=== PATIENT | male | born 1980 | race African-American/Black ===

== ENCOUNTER 2023-09-22 16:53 | Emergency (ER) | payer MEDICAID ==
[~2023-09-22] VITALS: Ht 170.2 cm; Wt 83.9 kg
[2023-09-22 18:35] LABS: BASOPHILS # (AUTO) 0.2 K/uL (0.0-0.2); BASOPHILS % (AUTO) 0.9 % (0.0-2.0); EOSINOPHILS # (AUTO) 0.9 K/uL (0.0-0.7); HEMATOCRIT 31 % (39-51); HEMOGLOBIN 10.8 g/dL (13.5-17.5); LYMPHOCYTES # (AUTO) 1.3 K/uL (0.8-4.8); LYMPHOCYTES % (AUTO) 7.2 % (20.0-44.0); MEAN CORPUSCULAR HEMOGLOBIN 30 PG (26.0-33.0); MEAN CORPUSCULAR HGB CONC 34 g/dl (31.0-36.0); MEAN CORPUSCULAR VOLUME 88 fL (80-96); MONOCYTES # (AUTO) 1.3 K/uL (0.1-1.30); MONOCYTES % (AUTO) 7.1 % (2.0-12.0); NEUTROPHILS # (AUTO) 14.6 K/uL (1.8-8.9); NEUTROPHILS % (AUTO) 79.8 % (43.0-81.0); PLATELET COUNT (AUTO) 475 K/uL (150-450); RED BLOOD CELL COUNT(AUTO) 3.58 MIL/uL (4.5-6.0); RED CELL DISTRIBUTION WIDTH 14.2 % (11.5-15.0); WHITE BLOOD COUNT (AUTO) 18.3 K/uL (4.3-11.0)
[2023-09-22] MEDS ORDERED: OLAN20TA3 PO (18:39)
[2023-09-22] MEDS ORDERED: TRAZ-257 PO (18:39)
[2023-09-22] MEDS ORDERED: BECL10.62 IH (18:39)
[2023-09-22] MEDS ORDERED: AMOX1TAB16 PO (18:39)
[2023-09-22] MEDS ORDERED: CYCL10TA9 PO (18:39)
[2023-09-22] MEDS ORDERED: MELO-107 PO (18:39)
[2023-09-22] MEDS ORDERED: OMEG1CAP40 PO (18:39)
[2023-09-22 18:43] LABS: CALCIUM, SERUM 8.7 mg/dL (8.5-10.1); CARBON DIOXIDE 28 mmol/L (21-32); CHLORIDE 98 mmol/L (98-107); CREATININE 0.6 mg/dL (0.6-1.3); GLUCOSE 103 mg/dL (74-106); POTASSIUM 3.4 mmol/L (3.5-5.1); SODIUM SERUM 135 mmol/L (136-145); UREA NITROGEN, BLOOD 10 mg/dL (7-18)
[2023-09-22 18:56] LABS: ALANINE AMINOTRANSFERASE 43 U/L (12-78); ALBUMIN 2.2 g/dL (3.4-5.0); ALKALINE PHOSPHATASE 114 U/L (46-116); ASPARTATE AMINOTRANSFERASE 32 U/L (15-37); BILIRUBIN,DIRECT 0.2 mg/dL (0.0-0.2); BILIRUBIN,TOTAL 0.6 mg/dL (0.2-1.0); NT-PRO BNP 53 pg/mL (0-125); TOTAL PROTEIN, SERUM 7.4 g/dL (6.4-8.2)
[2023-09-22] MEDS: IV NS 0.9% 1,000 ML BAG IV ONE (19:00)
[2023-09-22] MEDS: AZITHROMYCIN 500 MG in IV D5W 250 ML IV ONE (19:00)
[2023-09-22 19:15] VITALS: BP 119/76; TEMP 98.4; O2SAT 96
[2023-09-22] MEDS: PIPERACILLIN /TAZOBACTAM 3.375 G in IV D5W 50 ML IV ONE (19:15)
[2023-09-22] MEDS ORDERED: AZITHROMYCIN 500 MG VIAL ONE (19:47)
[2023-09-22] MEDS ORDERED: VANCOMYCIN 1 GM /D5W 250 ML PB IV ONE (19:47)
[2023-09-22] MEDS: VANCOMYCIN 1 GM in IV D5W 250 ML IV ONE (19:49)
[2023-09-22 20:01] LABS: INR 1.09 (0.91-1.10); PROTHROMBIN TIME 11.5 SECS (9.2-11.1)
[2023-09-22 20:22] LABS: APPEARANCE,URINE Clear (CLEAR); BILIRUBIN,URINE MODERATE (NEGATIVE); BLOOD, URINE Negative Ery/uL (NEGATIVE); COLOR,URINE YELLOW (YELLOW); KETONES,URINE 15 mg/dL (NEGATIVE); LEUKOCYTE ESTERASE ,URINE Negative (NEGATIVE); NITRITE, URINE Negative (NEGATIVE); PROTEIN,URINE 100 mg/dl (NEGATIVE); UGLUCOSE Negative (NEGATIVE)
[2023-09-22 21:53] LABS: ADD URINE CULTURE YES; BACTERIA,URINE Few /HPF (None Seen); SQUAMOUS EPITHELIAL CELL,UR Few /HPF (None Seen)
== END 2023-09-23 00:44 | disposition short-term general hospital (02) ==
LOC: ER 16:56
DX: R05.9 Cough, unspecified (principal); G47.00 Insomnia, unspecified; Z79.899 Other long term (current) drug therapy; Z20.822 Contact with and (suspected) exposure to COVID-19
CPT/HCPCS: 99291; 96365; 96366; 87426; 96368; 93005 ×2; 71045; 84145; 85025; 80048; 87040 ×2; 87086; 83605; 80076; 81001; 36415; 84484; 85730; 83880; J3370 ×2; J2543; J7060; J0456 ×2; A4223